=== PATIENT | female | born 1950 | race Two or more races ===

== ENCOUNTER 2022-12-11 19:34 | Emergency (ER) | payer MEDICARE, OTHER ==
[~2022-12-11] VITALS: Ht 162.6 cm; Wt 72.1 kg
[2022-12-11] MEDS ORDERED: NAPR-1192 PO (22:40)
[2022-12-11] MEDS ORDERED: IBUPROFEN 600 MG TABLET ONE (22:48)
[2022-12-11] MEDS: IBUPROFEN 600 MG TABLET PO ONE (22:49)
[2022-12-11 22:55] VITALS: BP 125/70
== END 2022-12-11 22:54 | disposition home or self-care (01) ==
LOC: ER 19:38
DX: S52.592A Other fractures of lower end of left radius, initial encounter for closed fracture (principal); S62.522A Displaced fracture of distal phalanx of left thumb, initial encounter for closed fracture; R51.9 Headache, unspecified; I10 Essential (primary) hypertension; W01.0XXA Fall on same level from slipping, tripping and stumbling without subsequent striking against object, initial encounter; Y93.89 Activity, other specified; Y92.89 Other specified places as the place of occurrence of the external cause; Y99.8 Other external cause status
CPT/HCPCS: 70450-TC; 72125-TC; 73030-TC; 73110; 73130-TC